=== PATIENT | male | born 1955 | race Caucasian/White ===

== ENCOUNTER → 2019-01-30 | Outpatient (CLI) | payer OTHER, SELFPAY ==
--- NOTE | 2019-01-30 08:06 | CT_ITS ---
STUDY: CT RIGHT SHOULDER REASON FOR EXAM: Male, 64 years old. Right shoulder osteoarthritis RADIATION DOSAGE (If Supplied By Facility): CTDIvol = ( 40.12 ) mGy, DLP = ( 1007.69 ) mGycm TECHNIQUE: The patient was scanned in a multi detector CT scanner. High resolution transaxial imaging was performed without the administration of intravenous contrast material. Sagittal and coronal images were reconstructed. Individualized dose optimization techniques were used for this CT. COMPARISON: None. FINDINGS: There are no acute fractures or dislocations. There are degenerative changes of the acromioclavicular joint and narrowing of the acromiohumeral distance. Mild degenerative changes of the glenohumeral articulation. No evidence of any calcific tendinitis or bursitis. No loose bodies CT/Extremity Upper without Contra IMPRESSION: No fractures. Degenerative changes of the acromioclavicular joint and the glenohumeral articulation with a high riding right humeral head and subsequent narrowing of the acromiohumeral distance. Rotator cuff pathology suspected Electronically Signed: Endy Morgan MD at 0:24 EDT Tel , Service support ,
== END | disposition home or self-care (01) ==
LOC: CT 08:03
PROVIDERS: Family Provider Family Medicine; PCP Family Medicine; Referring Provider Specialist; Visit Provider Specialist
DX: M19.211 Secondary osteoarthritis, right shoulder (principal)
CPT/HCPCS: 73200

== ENCOUNTER 2019-05-16 08:01 | Inpatient (IN) | payer OTHER, MEDICARE, SELFPAY ==
[2019-05-16] VITALS (10 sets, daily range): BP systolic 92–131; BP diastolic 37–111; PULSE 84–116; RESP 16–18; TEMP 36.4–36.9; O2SAT 93–99; BMI 30.2
--- NOTE | 2019-05-16 08:10 | EKG12_ITS ---
Test Reason : PRE OP Blood Pressure : / mmHG Vent. Rate : 081 BPM Atrial Rate : 081 BPM P-R Int : 150 ms QRS Dur : 100 ms QT Int : 388 ms P-R-T Axes : 042 039 040 degrees QTc Int : 450 ms Normal sinus rhythm Normal ECG When compared with ECG of 13-JUL-2017 14:29, No significant change was found Confirmed by FATOUMATA VINCENT ([id number]), web content editor MARVIN NORRIS ([id number]) on 05/22/2019 1:13:39 PM Referred By: Antonio Newberry Confirmed By:FATOUMATA VINCENT
[2019-05-16] MEDS: Acetaminophen 500 MG Tablet 1000 MG PO ×2 (08:58→22:37)
[2019-05-16] MEDS: Celecoxib 200 MG Capsule 400 MG PO (08:59)
[2019-05-16] MEDS: Gabapentin 600 MG Tablet PO (08:59)
[2019-05-16 09:00] LABS: Bedside Glucose 107 mg/dL (70-110)
[2019-05-16] MEDS: Magnesium Sulfate 4gm/100mL 4 GM/100 ML IV.SOLN. IV (09:08)
[2019-05-16] MEDS: Pantoprazole Sodium 40 MG Tablet PO (09:35)
[2019-05-16] MEDS: Lactated Ringers 1,000 ML 999 ML IV ×2 (10:05→15:21)
[2019-05-16] MEDS: Lactated Ringers 1,000 ML 75 ML IV (10:05)
--- NOTE | 2019-05-16 10:30 | RAD_ITS ---
STUDY: X-RAY - LEFT HUMERUS REASON FOR EXAM: Male, 64 years old. ORIF of humerus TECHNIQUE: 11 intraoperative fluoroscopic view(s) of the humerus. COMPARISON: None. FINDINGS: Fluoroscopic guidance was provided during open reduction and internal fixation of a left humeral fracture. Correlation with the operative report is recommended. RAD/Humerus min 2 Views IMPRESSION: As above. Electronically Signed: Antonio Donald, at 16:28 EDT Tel , Service support ,
[2019-05-16] MEDS: dexAMETHasone 10 MG/ML Vial IV (10:38)
--- NOTE | 2019-05-16 13:35 | PCM.OPRPT ---
Report of Operation Date of Procedure: 05/16/19 Pre-Operative Diagnosis: Periprosthetic left humerus fracture with loosening of total shoulder implant Post-Operative Diagnosis: Periprosthetic left humerus fracture with loosening of total shoulder implant Surgery/Procedure Performed:: 1. Left humerus shaft open reduction internal fixation. 2. Left revision total shoulder arthroplasty both components Description of Surgical Findings:: Stable we reduced fracture, stable reverse shoulder replacement. locomotive firer: Carlitos Cruz Type of Anesthesia:: General Anesthesiologist: Manohar Rosales Special Medications: 100 mg clindamycin preop and re-dose 2 hours after initial incision, 1 g TXA at incision, 1 g TXA closure, 10 mg Decadron, joint cocktail (5 mg Duramorph, 30 mL of 0.5% Ropivicaine, 1000 units of epinephrine, 30 mg of Toradol) Specimen's removed: 3 separate specimens were sent to micrology Estimated Blood Loss (mL): 400 Fluids Replaced: 1400 mL crystalloid Description of Procedure: Implants: 1. ExacTech 42 mm glenosphere 2. Tornier flex revive 9 mm x 190 mm humeral stem 3. Flex revive 0 reverse tray 4. Flex revive 42 mm +6 mm polyethylene liner 64-year-old male who had a left reverse total shoulder replacement 3 years ago fell presenting with a comminuted periprosthetic proximal humerus and humeral shaft fracture with humeral stem loosening. Risks and benefits of revision replacement were discussed the patient including but not limited to blood loss, DVTs, PEs, neurovascular damage, infection, general risk of anesthesia including loss of life. We also discussed that the glenoid baseplate was well fixed however based on the fracture pattern I felt that a device from another manufacture would be more appropriate for the revision and stem fixation. Patient demonstrated an understanding of the off label use of these implants and wished to proceed without removal of the glenoid baseplate/well fixed implants. On the date of the procedure patient's left upper extremity was marked in the preoperative area. Patient was brought back to the operating room with her transfer the table in the supine position. Anesthesia assumed control of the C-spine and airway and remained controlled throughout the remainder the procedure. After anesthesia administered anesthetic all bony prominences identified well-padded the head was secured to the table and the patient was placed in the beachchair position at about 30 degrees inclination. Live x-ray was used to verify the fracture position prior to final positioning. After final positioning the left upper extremity was prepped in a sterile fashion with the surgeon scrubbed. Upon reentering the room the left upper extremity was draped in a standard orthopedic fashion. The previous incision was marked out extending it distally in order to address the humeral shaft fracture. Timeout was called and everyone agreed upon the side, the site, the procedure to be performed, patient's identity and antibiotics given. Incision was taken down through skin subtenons tissue and fat down to fascia. The incision was extended distally to the anterior approach to the arm. Due to the extent of the humeral shaft fracture this longer incision was needed as opposed to just revising the stem. Distally we incised the fascia and retracted the biceps medially. Proximally we developed the previously scarred down deltopectoral interval. After carefully developing this interval we were careful to maintain the deltoid insertion as well as the distal half of the pec insertion. A retractor was placed underneath the deltoid and the arm was externally rotated. The previous subscapularis tendon repair was taken back down and the joint was exposed. At this time we were able to dislocate the joint. The joint was dislocated. Cultures from the synovium were sent. After dislocating the joint it was evident that the stem was grossly loose. This was removed using a vice cone treater. Once the stem was removed we then directed our attention distally. Distally we carefully identified the fracture and dissected out. We are careful and mindful of the proximity of the radial nerve. We split the proximal one quarter of the brachialis at the neuro interval. There were multiple fragments of the fracture proximally were able to subperiosteally dissected around the proximal humeral fracture fragment in place a cable bringing the proximal humeral fracture fragments together. Once this was done we then directed our attention more towards the distal portion of the fracture. In this area it was felt that to would give better rotational control. We carefully dissected subperiosteally around the bone in order to prevent nerve damage. We are mindful of the position of the cables. After careful dissection and spending significant time making sure we were subperiosteally it did not feel that any soft tissue that could be the radial nerve was left between the bone and the cable. At this time we were able to provisionally fix these cables down helping to reduce the fracture and make the canal for the humeral stem. Attention was then directed towards revising the reverse total shoulder. After this were able to externally rotate the humerus gave us adequate exposure. We sounded the distal humerus with a 9 mm stem. Based on the of the sound this fit nicely at 190 mm depth. After sounding the trial was constructed and put into place. After placing the trial we provisionally tightened the cables even further and noted that the implant was well fixed. With the previous [address] we trialed the shoulder was reduced showed adequate internal rotation good external rotation. Good forward elevation and good stability. At this time the trial components were removed. The stem was removed from the humerus. Glenosphere machine screw was removed and glenosphere was removed. Membrane from behind glenosphere was sent for culture. After this we copiously irrigated out the wound with 6 L of normal saline under low-pressure lavage. We then used a chlorhexidine solution to lavage the wound and then washed this out with normal saline. On the back table the stem was constructed. The new glenosphere was opened and a 42 mm glenosphere was impacted back into place and the machine screw was used to tighten it down. Once this was done extremity was externally rotated and the stem was impacted into place. Once this was done we again trialed and verified that the shoulder could be adequately reduced and function well. Once this was done the trial components removed the final polyethylene was impacted into place in the humeral baseplate was impacted into place. Shoulder was reduced. Chlorhexidine solution was used to lavage the joint for 1 minute. Copious amounts of normal saline were used to irrigate out the joint. The cables received final tightening and the clamps were tightened down. Cables were cut. There was no anterior structures of the shoulder to repair. At this time the fascia was repaired using #1 Vicryl both proximally and distally. Deep skin closure was done with #1 Vicryl. Superficial skin closure was done with 0 Vicryl and Monocryl. Final skin closure was done with Steri-Strips. A sterile dressing was placed. Patient was placed in a sling with abduction pillow. Patient was then placed in the supine position and awakened by anesthesia and transferred to the PACU for recovery. Postoperative plan: Patient will be on doxycycline for 1 week as we follow cultures from revision. Aspirin daily for DVT prophylaxis. Patient is nonweightbearing for a total of 6 weeks minimum with weightbearing being directed by healing on radiographs. Patient will start physical therapy with gentle passive range of motion and pendulum swing exercises at 2 weeks postop. If adequate healing we will progress to active range of motion at 6 weeks postop. During the course of the procedure the physician assistant professor of dietetics played a vital role. His intimate knowledge of my steps in the procedure aided in safe and expedient completion of the procedure. The PA played a vital rolls in positioning particularly in obtaining the appropriate beach chair position and securing the patient's body and head to the table. The PA was also vital in the retraction of soft tissues during the exposure and especially the glenoid work as this is a vital part of the procedure to prevent neurovascular damage. the PA was also vital and protecting soft tissues during times of bony cuts and reaming. He also played a vital role in closure with my direct supervision. The PA was also important during reduction and dislocation of the joint and trials intraoperatively. Grafts/Implants Used: Tornier humeral stem, ExacTech glenosphere - Complications No intraoperative complications were noted - Admit VTE Documentation VTE Present on Admission: No VTE Mechan Device Prophylaxis: SCD's, Knee High JANAE Hose VTE Pharm Prophylaxis ordered?: Yes
--- NOTE | 2019-05-16 13:38 | RAD_ITS ---
STUDY: X-RAY - LEFT SHOULDER REASON FOR EXAM: Male, 64 years old. Left shoulder arthroplasty TECHNIQUE: 2 view(s) of the shoulder. COMPARISON: None. FINDINGS: There are post surgical changes from left shoulder arthroplasty and placement of a left humeral intramedullary lorna. The hardware is intact and alignment is satisfactory. There are cerclage wires noted spanning a left humeral fracture. There is subcutaneous air noted, consistent with the patient's postoperative state. RAD/Shoulder min 2 Views IMPRESSION: Satisfactory postoperative changes with intact hardware in satisfactory alignment. Electronically Signed: Antonio Donald, at 16:30 EDT Tel , Service support ,
--- NOTE | 2019-05-16 14:03 | RAD_ITS ---
STUDY: X-RAY - LEFT HUMERUS REASON FOR EXAM: Male, 64 years old. Post TECHNIQUE: 2 view(s) of the humerus. COMPARISON: None. FINDINGS: There are post surgical changes from left shoulder arthroplasty and placement of a left humeral intramedullary lorna. The hardware is intact and alignment is satisfactory. There are cerclage wires noted spanning a left humeral fracture. There is subcutaneous air noted, consistent with the patient's postoperative state. RAD/Humerus min 2 Views IMPRESSION: Satisfactory postoperative changes with intact hardware in satisfactory alignment. Electronically Signed: Antonio Donald, at 16:30 EDT Tel , Service support ,
--- NOTE | 2019-05-16 16:35 | CASEMGMT ---
RN KAREN EDI ARCHITECT CM to room to meet with patient for initial transition planning/care coordination assessment. DAPHNE JONES introduced self and role at [facility]. Pt voices understanding and consents to assessment at this time. Pt resting in bed in no distress at this time. @ bedside. Pt is A/O at this time and answers all questions appropriately. Care providers, pharmacy, and demographics verified/updated at this time. PCP: Dr Joshua Gerardo Specialists: Rohith--ortho Preferred Pharmacy: [facility] Insurance: [employer] Prescription Benefit: Yes Living Will/HPOA: has both LW and HCPOA, who is his , Talisha. LNOK: . 2 adult children: Daughter lives close. Son lives in [place] Living Arrangements: Lives in one-story home w/one step to enter thru the garage. States since fracture his has been assisting w/showering and dressing as well as other household tasks. Prior to fx, pt was independent with everything. States he still works on [employer] very part-time Transportation: will drive pt home @ D/C. They states no transportation concerns. DME: has the following DME: shower chair, hand held shower. Pt states no need for further DME at this time. HHC/SNF: No history of either and denies needs. No needs identified. Pt has been getting OP therapy @ [facility] in [place] and wishes to resume OP therapy with them @ discharge. Pt wishes to return home and states has no concerns with going home at time of discharge. CM to follow for any discharge planning/needs. Pt and voice no further concerns/needs at this time. Advised them to ask for CM if any further questions/concerns/needs arise. They voice understanding. PLAN: Home w/resumption of OP therapy @ [facility] therapy and spousal support. Diane CHO RN, CM
[2019-05-16] MEDS: Lactated Ringers 1,000 ML 125 ML IV (17:03)
[2019-05-16] MEDS: Ensure Surgery 237 ML LIQUID PO (17:03)
[2019-05-16 18:05] LABS: EST Glomerular Filtration Rate 71 mL/min (>60); Est Glom Filt Rate - Afr Amer 86 mL/min (>60); Estimated Creatinine Clearance 74.65 ml/min
[2019-05-16] MEDS: Doxepin Hcl 25 MG Capsule PO (22:37)
[2019-05-16] MEDS: Doxycycline 100 MG CAPSULE PO (22:42)
[2019-05-17] MEDS: Lactated Ringers 1,000 ML 15 ML IV (01:26)
[2019-05-17] MEDS: 0.9% NaCl Peripheral Flush Adult/Peds IV ×3 (01:41→06:51)
[2019-05-17] MEDS: Ketorolac 15 MG/ML Vial IV (01:41)
[2019-05-17 03:00] VITALS: BP 111/75; PULSE 109; RESP 18; TEMP 37; O2SAT 94
[2019-05-17] MEDS: oxyCODONE 5 MG Tablet PO (03:26)
[2019-05-17 05:31] LABS: Hematocrit 35.3 % (40-54); Hemoglobin 11.9 g/dL (13.0-16.5); Mean Corp Hgb Conc 33.7 g/dL (32-36); Mean Corpuscular Hgb 30.8 pg (27.0-32.0); Mean Corpuscular Volume 91.5 fL (80-94); Mean Platelet Vol. 9.2 fl (6.2-12.0); Platelet Count 259 K/mm3 (150-450); RBC Distribution Width CV 12.8 % (11.6-14.6); RBC Distribution Width SD 42.5 fl (35.1-43.9); Red Blood Count 3.86 M/mm3 (4.6-6.2); White Blood Count 20.1 K/mm3 (4.4-11.0)
[2019-05-17 05:56] LABS: Anion Gap 7 (5-15); BUN 23 mg/dL (7-18); BUN/Creat Ratio 20.4 RATIO (10-20); Chloride 109 mmol/L (98-107); Creatinine, Serum 1.13 mg/dL (0.70-1.30); EST Glomerular Filtration Rate 69 mL/min (>60); Est Glom Filt Rate - Afr Amer 83 mL/min (>60); Estimated Creatinine Clearance 72.67 ml/min; Glucose 132 mg/dL (74-106); Potassium 4.5 mmol/L (3.5-5.1); Sodium Level 141 mmol/L (136-145)
--- NOTE | 2019-05-17 08:56 | PN.ORTHO_ITS ---
Subjective: The patient was sitting in bed upon examination. Patient denies any chest pain, shortness of breath, dizziness, lightheadedness, nausea or vomiting, or calf pain. Pain is controlled on medications. No adverse overnight events. Patient states the oxycodone is not providing him with pain control. He states he gets better pain control from the meloxicam and Tylenol. He has been in his UltraSling. Patient states the pain is been well controlled. He is sore in the left arm/shoulder. He is adamant that he goes home today. Patient has oxyc odone at home as well as aspirin and the Tylenol. Objective: Tachycardia with heart rate 109, other vital signs stable, afebrile. Patient currently denies any chest pain, shortness of breath or racing heart. He had very similar reaction postoperatively from his previous left reverse total shoulder arthroplasty in July 2017 with elevated heart rate. Dressing is clean, dry, intact Ultra-sling fitting appropriately Sensation intact to axillary, radial, median, and ulnar distribution Motor intact to AIN, PIN, and ulnar nerve. Patient can make okay sign, cross hi s fingers, thumbs up, and active extension of the wrist. - Physical Exam General: Alert, Oriented x3, Cooperative, No apparent distress Vital Signs Temp Pulse Resp BP Pulse Ox 98.6 F 109 H 18 111/75 94 05/17/19 03:00 05/17/19 03:00 05/17/19 03:00 05/17/19 03:00 05/17/19 03:00 Oxygen Flow Rate (L/min) 6 Oxygen Delivery Method Room Air Weight: 104.1 kg Body Mass Index (BMI) 30.2 Intake and Output for Last 24 Hours 05/15/19 05/16/19 05/17/19 23:59 23:59 23:59 Intake Total 4716 / 5016 2438 / 2438 Balance 4716 / 5016 2438 / 2438 Laboratory Tests Past 24 Hrs 05/16/19 05/17/19 05/17/19 16:50 05:20 05:20 WBC 20.1 H RBC 3.86 L Hgb 11.9 L Hct 35.3 L MCV 91.5 MCH 30.8 MCHC 33.7 RDW Std Deviation 42.5 RDW Coeff of Jaxon 12.8 Plt Count 259 MPV 9.2 Sodium 141 Potassium 4.5 Chloride 109 H Carbon Dioxide 25.0 Anion Gap 7 BUN 23 H Creatinine 1.10 1.13 Estim Creat Clear Calc 74.65 72.67 Est GFR (MDRD) Af Amer 86 83 Est GFR (MDRD) Non-Af 71 69 BUN/Creatinine Ratio 20.4 H Glucose 132 H Calcium 8.0 L POC Glucose 05/16/19 08:46 POC Glucose 107 Medical Necessity - Tobacco Use Smoking Status: Never smoker Tobacco Use: Non-smoker Assessment/Plan All Active Problems Intra-articular fracture of distal end of radius with volar angulation (Acute) 1. S/P left humerus shaft open reduction internal fixation with revision total shoulder arthroplasty both components POD #1 2. Continue Pain Medications: Tylenol, meloxicam, and OxyIR 3. DVT Prophylaxis: Aspirin 81 mg daily 4. PT/OT: Patient will be nonweightbearing for 6 weeks minimum with weightbearing being directed by healing on radiographs. Will begin outpatient formal physical therapy 2 weeks postoperatively with gentle passive range of motion and pendulum exercises only. We will hold any active range of motion until 6 weeks postoperatively. While in the hospital okay to work on elbow range of motion only. 5. H & H: 11.9/35.3, asymptomatic 6. Reactive leukocytosis: Currently 20.1, afebrile. Patient did receive Decadron intraoperatively 7. Encouraged Incentive Spirometry 8. Continue with antibiotics while following cultures: Currently pending. Patient will be on doxycycline for 1 week postoperatively 9. Disposition: Orthopedically stable, patient wishes to go home today. I feel it is okay for patient to go. He did have elevated heart rate but he had very similar incident with his previous left reverse total shoulder arthroplasty. He has without any chest pain, shortness of breath, or feeling of racing heart or skipping beats. Patient has oxycodone, Tylenol, aspirin at home. Prescription for senna, doxycycline and meloxicam will be given. He will follow-up per postop instructions.
--- NOTE | 2019-05-17 09:15 | PCM.DC.ORTHO ---
Discharge Diet: No Restrictions Discharge Activity: May Not Drive May shower in (days): 1 - Turn dressing away from water Ice area for (Minutes): 20 - Every 1-2 hours while awake Weight Bearing Status: No weight bearing - Left upper extremity for 6 weeks postoperatively Call your doctor if your incision/area has: Continuous Slow Oozing, Sudden Increased Bleeding, Increased Pain/ Swelling, Increased Redness, Foul Smelling Discharge Call your doctor if you observe: Fever of 101 or Higher, Coldness, Increased Pain, Numbness or Tingling, Change in Color Remove Dressing in (days):: 4 - Okay to remove dressing on May 21, 2019 Additional Instructions: Follow orthopedic postop instructions Okay to work on elbow range of motion only while at home coming out 3 times daily from the UltraSling. Otherwise no active range of motion of the left shoulder. We will begin outpatient physical therapy after 2-week postop follow-up Allergies/Adverse Reactions: Allergies Sulfa (Sulfonamide Antibiotics) Allergy (Verified 05/16/19 08:39) DRIVES ME CRAZY DRIVES ME CRAZY acetaminophen [From Vicodin] Adverse Reaction (Verified 05/14/19 15:13) hallucinations hydrocodone [From Vicodin] Adverse Reaction (Verified 05/14/19 15:13) hallucinations oxycodone Adverse Reaction (Verified 05/14/19 15:13) hallucinations scopolamine [From Transderm-Scop] Adverse Reaction (Verified 05/16/19 15:15) Nausea/Vom/Diarrhea ANTIHISTAMINES Adverse Reaction (Uncoded 05/16/19 08:39) INSOMNIA INSOMNIA Medications to take at Discharge Citalopram [Celexa] 20 mg PO DAILY 05/14/15 Dutasteride [Avodart] 0.5 mg PO DAILY 05/14/15 Doxepin HCl [Sinequan] 25 mg PO QHS 08/26/15 Ascorbic Acid [Vitamin C] 500 mg PO DAILY 07/13/17 Vitamin B Complex 1 each PO DAILY 07/13/17 Vitamin E 400 units PO DAILY 07/13/17 Zinc 50 mg PO DAILY 07/13/17 Lisinopril 20 mg PO DAILY 05/16/19 Omeprazole Magnesium [Prilosec Otc] 20 mg PO DAILY 05/16/19 Acetaminophen [Tylenol] 1,000 mg PO Q8 14 Days tab 10/03/19 Aspirin E.C. [Ecotrin] 81 mg PO DAILY@0800 14 Days tab 05/17/19 Doxycycline 100 mg PO BID #14 cap 05/17/19 Meloxicam [Mobic] 7.5 mg PO BID #60 tab 05/17/19 Oxycodone [Oxyir] 5 - 10 mg PO Q4H PRN PRN 7 Days tab 05/17/19 Senna/Docusate Sodium [Senokot-S] 2 tab PO BID PRN PRN #10 tab 05/17/19 The following prescriptions were given: Doxycycline 100 mg PO BID #14 cap Transmission Status: Pending to [facility] Meloxicam [Mobic] 7.5 mg PO BID #60 tab Transmission Status: Pending to [facility] Senna/Docusate Sodium [Senokot-S] 2 tab PO BID PRN PRN #10 tab PRN Reason: Constipation Transmission Status: Pending to [facility] Primary Care Physician: Joshua Gerardo [Primary Care Provider] - Test Results: Test results from this visit will be discussed in further detail at your follow-up appointment, if applicable. Please Follow Up With: Carlitos Cruz PA-C When: 05/30/19 @ 9:15 am
[2019-05-17] MEDS: Citalopram 20 MG Tablet PO (09:21)
[2019-05-17] MEDS: Ascorbic Acid 500 MG Tablet PO (09:21)
[2019-05-17] MEDS: Ensure Surgery 237 ML LIQUID PO (09:21)
[2019-05-17] MEDS: Famotidine 20 MG Tablet PO (09:21)
[2019-05-17] MEDS: Meloxicam 7.5 MG Tablet PO (09:21)
[2019-05-17] MEDS: Aspirin E.C. 81 MG Tablet PO (09:21)
[2019-05-17] MEDS: Pantoprazole Sodium 20 MG Tablet PO (09:22)
[2019-05-17] MEDS: Finasteride 5 MG Tablet PO (09:22)
[2019-05-17] MEDS: Doxycycline 100 MG CAPSULE PO (09:22)
[2019-05-17 10:38] VITALS: BP 116/73; PULSE 99; RESP 18; TEMP 36.7; O2SAT 95
== END 2019-05-17 11:00 | disposition home or self-care (01) | DRG 483 ==
LOC: ACINP 08:38 → MS3 05-17 13:19
PROVIDERS: Admitting Provider Specialist; Family Provider Family Medicine; PCP Family Medicine; Referring Provider Specialist; Visit Provider Specialist
PROC: 0RRK00Z Replacement of Left Shoulder Joint with Reverse Ball and Socket Synthetic Substitute, Open Approach (ICD-10-PCS; principal; 2019-05-16 10:10)
DX: S42.252A Displaced fracture of greater tuberosity of left humerus, initial encounter for closed fracture (principal); S42.352A Displaced comminuted fracture of shaft of humerus, left arm, initial encounter for closed fracture; M97.32XA Periprosthetic fracture around internal prosthetic left shoulder joint, initial encounter; Z96.612 Presence of left artificial shoulder joint; W07.XXXA Fall from chair, initial encounter; I10 Essential (primary) hypertension; E66.3 Overweight; Z68.32 Body mass index [BMI] 32.0-32.9, adult; Z87.891 Personal history of nicotine dependence
CPT/HCPCS: 36415; 73030; 73060; 76000; 80048; 82565; 82962; 85027; 87015; 87070; 87075; 87081; 87102; 87116; 87176; 87205; 87206; 93005; 97161; 97166; 99251; C1776; J7040; J7120; A4216; G0463; J2405

== ENCOUNTER 2019-06-06 09:26 | Inpatient (IN) | payer OTHER, MEDICARE, SELFPAY ==
[2019-05-16 16:49] VITALS: BMI 30.2
[2019-06-06] VITALS (10 sets, daily range): BP systolic 87–122; BP diastolic 68–80; PULSE 78–94; RESP 16; TEMP 35.8–36.6; O2SAT 95–99; BMI 31.1
--- NOTE | 2019-06-06 | FORE_PTH ---
PATIENT: BANG CARRILLO LOC: [facility] U#:[id number] AGE/SX: 64/M ROOM: DE325 RE06/06/[address]: Dr. Antonio Newberry MD : [id number] BED: 1 DIS: 06/07/2019 SPEC #: [id number] RECD: 06/06/19 12:00 STATUS: JACQUI REStephon #: [id number] VICK: 06/06/19 00:[address]: Antonio Newberry DEPT: SURGICAL PATHOLOGY RECD BY: Joelle Riggins ENTERED: 06/07/19 08:57 SP TYPE: FOREIGN B TRACY DR: Dr. Joshua Gerardo MD Tissues: FOREIGN BODY Procedures: Surgery Specimen Level I HEADER OPERATION: ERAS, total shoulder reverse revision PRE-OP DIAGNOSIS: Presence left artificial shoulder joint TISSUE SUBMITTED: Prosthetic left shoulder joint GROSS DIAGNOSIS Pieces of orthopedic hardware, clinically prosthetic left shoulder joint. SJ:queenie 06/08/19 COMMENT Orthopedic hardware pieces are returned to the company after approval by the legal services. Photographs of the hardware are taken. GROSS DESCRIPTION Received is one container labeled with the patient's name and not further designated. The specimen consists of six pieces of orthopedic hardware, consistent with shoulder joint replacement hardware. The metallic ball portion of humeral head hardware measures 3.7 x 3.7 x 0.7 cm. Plastic portion cemented to metallic ball measures 3.7 cm in diameter. Two metallic pieces consisting of humeral stem measure 4.5 x 2 x 1.5 cm and 13 cm in length and 1 cm in diameter. A metallic screw is present which measures 6 cm in diameter and 0.5 cm in length. One metallic hollow sleeve is present which measures 2 cm in length and 0.7 cm in diameter and is inscribed with number [id number]. A round metallic nut is also present measuring 0.7 cm in diameter and 0.5 cm in length. The specimen is for gross identification only. / Scooby 06/06/19 CPT: 12378
[2019-06-06] MEDS: Lactated Ringers 1,000 ML 999 ML IV ×2 (10:08→14:50)
[2019-06-06] MEDS: Magnesium Sulfate 4gm/100mL 4 GM/100 ML IV.SOLN. IV (10:15)
[2019-06-06 10:16] LABS: Bedside Glucose 137 mg/dL (70-110)
[2019-06-06] MEDS: Acetaminophen 500 MG Tablet 1000 MG PO ×2 (10:40→21:07)
[2019-06-06] MEDS: Gabapentin 600 MG Tablet PO (10:41)
[2019-06-06] MEDS: Lactated Ringers 1,000 ML 75 ML IV (11:10)
[2019-06-06] MEDS: Cefazolin 2 GM in 0.9% Normal Saline 100 ML IV (12:22)
--- NOTE | 2019-06-06 12:32 | RAD_ITS ---
STUDY: X-RAY - LEFT SHOULDER REASON FOR EXAM: Male, 64 years old. ReVision of left shoulder replacement. TECHNIQUE: 2 view(s) of the shoulder. COMPARISON: None. FINDINGS: Fluoroscopic services were provided for shoulder replacement. There is good alignment. RAD/Shoulder min 2 Views IMPRESSION: Intraoperative imaging provided for shoulder replacement. Electronically Signed: Delonte Pace, at 14:47 EDT , Service support ,
--- NOTE | 2019-06-06 14:05 | RAD_ITS ---
STUDY: X-RAY - LEFT HUMERUS REASON FOR EXAM: Male, 64 years old. . Postop TECHNIQUE: 2 view(s) of the humerus. COMPARISON: May 16, 2019 FINDINGS: There are healing fractures of the left humeral shaft status post open reduction internal fixation. Left shoulder prosthesis is also demonstrated in anatomic alignment and position... . RAD/Humerus min 2 Views IMPRESSION: Status post open reduction internal fixation of left humeral shaft fracture. Stable appearance to shoulder prosthesis. Electronically Signed: Kendrick Solorzano MD at 16:16 EDT , Service support ,
--- NOTE | 2019-06-06 14:06 | RAD_ITS ---
STUDY: X-RAY - LEFT SHOULDER REASON FOR EXAM: Male, 64 years old. Postop TECHNIQUE: 2 view(s) of the shoulder. COMPARISON: June 06, 2019. FINDINGS: Healing fracture of left humeral shaft status post open reduction internal fixation. Status post shoulder prosthesis placement RAD/Shoulder min 2 Views IMPRESSION: Status post left shoulder prosthesis placement Electronically Signed: Kendrick Solorzano MD at 16:16 EDT , Service support ,
--- NOTE | 2019-06-06 14:09 | PCM.OPRPT ---
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 Fracture remained well reduced and well fixed during the procedure [employer] consultant: Carlitos Cruz Type of Anesthesia:: General Anesthesiologist: Marcelino Cervantes Special Medications: 2 g Ancef, 1 g TXA at incision, 1 g TXA closure, 10 mg Decadron, joint cocktail (5 mg Duramorph, 30 mL of 0.5% Ropivicaine, 1000 units of epinephrine, 30 mg of Toradol), IV vancomycin Estimated Blood Loss (mL): 300 mL Fluids Replaced: 1000 ML crystalloid Description of Procedure: Implants Tornier Aequalis Flex revive system 1. Proximal body 11 mm with 132.5 degree angle, standard 2. Distal stem 11 mm x 130 mm 3. Interbody spacer 11 mm x 20 mm 4. 0 reverse humeral tray 5. +6 mm 42 mm angle C reverse insert 64-year-old male who had a periprosthetic humerus fracture with open reduction internal fixation and revision of the total shoulder replacement 3 weeks ago. 1 week postop patient felt something catching in his arm. 2 weeks postop patient was noted to have distraction of the modular implant. At this time we discussed risks and benefits of revising the modular implant. Patient demonstrate understanding was able to sign informed consent. He did understand the risks include but were not limited blood loss, DVTs, PEs, neurovascular damage, infection, the risk of anesthesia, repeat hardware failure. I did explain to the patient that unfortunately this is the only modular implant in for the periprosthetic fracture most likely the best potential treatment plan. After multiple discussions with the implant company and engineers we elected to proceed with revision of the implant. On the date of the procedure patient's left shoulder was marked in the preoperative area. Patient was brought back to the operating room where they were transferred to the table in the supine position. Anesthesia assumed control of the C-spine and airway and remained controlled throughout the remainder the procedure. Patient's head was securely fastened to the table the patient was placed in the beachchair position. All bony prominences identified well-padded. Left upper extremities and prepped in a sterile fashion while the surgeon scrubbed. Upon reentering the room the left upper extremity was draped in a standard orthopedic fashion previous incision was marked out and timeout was called. When agreed upon the side, the site, the procedure to be performed, patient's identity antibiotic given. Try to make an incision we used live fluoroscopy to determine if the screw was still engaged into the distal portion of the implant. The distal fragment was no longer engaged with the screw. At this time we proceeded with the surgery. Incision was taken down through skin using the top half of the previous incision part needed for the total shoulder replacement. Once we are through skin we carefully dissected through the deltopectoral interval using the previous suture from that layer of closure. Once were able to do this we are able to slide a retractor up over the humerus and under the deltoid protecting the axillary nerve. Synovium was debrided and at this time the shoulder could be dislocated. The glenosphere appeared appropriate we elected not to do anything with the glenosphere. At this time the humeral body could be easily removed. A distracting screw was placed through the intermediate body and into the distal fragment of the modular stem. Backstop was used to remove this and it was able to be removed. It seemed to be fairly well fixed. At this time we re-sounded the canal we re-sounded up one size from a 9 to an11. This gave us a very snug fit. The wound was then copiously irrigated out normal saline with 6 L under low-pressure lavage. The proximal humerus was then again exposed and a trial was placed. Once we are happy with the fit of the trial we then assembled the final component. In assembling the final component we made very careful assurance that the teeth were adequately engaged. The screw was tightened down to white knuckle tightness. The secondary screw was then tightened down to white knuckle tightness. During each time we made multiple attempts at final tightening to verify adequate tightness. With this was completed there was no plate in the system appeared to be adequately tight. At this time we are able to examine the arm with no intramedullary implant. The fracture appeared to be healing well and moved as unit. The final stem was then impacted into place. Once it was an adequate depth we then trialed. The trial liner and humeral baseplate were then removed. The baseplate was open, the Henderson taper was cleaned and the baseplate was impacted into place. Finally the 42 mm +6 mm angle C, 7.5 degrees was trialed and found to be appropriate. There was appropriate soft tissue tensioning of the conjoined tendon. Adequate range of motion and stability were obtained. Shoulder was then dislocated. Trial poly-was removed wound was irrigated and final poly-was impacted into place. Shoulder was reduced. Final x-rays were taken verifying adequate fracture reduction in depth of the stem. Once was completed chlorhexidine solution was used to irrigate out the wound. The wound was then irrigated out with normal saline with copious amounts. Wound was closed in layer christensen fashion using #1 Vicryl for the fascia. 2-0 Vicryl for the skin and final skin closure was done with a Monocryl runner. Patient was placed in a sling and then awakened by anesthesia. They were placed in the supine position and transferred to the rney transferred to PACU for recovery. Postoperative plan: Patient will take aspirin daily for DVT prophylaxis. Doxycycline postoperatively for 1 week. Due to the healing of the fracture we will follow a normal postoperative physical therapy protocol for the shoulder. During the course of the procedure the physician assistant corporation counsel played a vital role. His intimate knowledge of my steps in the procedure aided in safe and expedient completion of the procedure. The PA played a vital rolls in positioning particularly in obtaining the appropriate beach chair position and securing the patient's body and head to the table. The PA was also vital in the retraction of soft tissues during the exposure and especially the glenoid work as this is a vital part of the procedure to prevent neurovascular damage. the PA was also vital and protecting soft tissues during times of bony cuts and reaming. He also played a vital role in closure with my direct supervision. The PA was also important during reduction and dislocation of the joint and trials intraoperatively. Grafts/Implants Used: Tornier - Complications No intraoperative complications - Admit VTE Documentation VTE Present on Admission: No VTE Mechan Device Prophylaxis: SCD's, Knee High JANAE Hose VTE Pharm Prophylaxis ordered?: Yes
[2019-06-06] MEDS: Lactated Ringers 1,000 ML 125 ML IV ×2 (15:48→19:55)
[2019-06-06] MEDS: Ensure Surgery 237 ML LIQUID PO (18:02)
[2019-06-06] MEDS: Cefazolin 1 GM/50 ML BAG IV (19:55)
[2019-06-06] MEDS: Ketorolac 15 MG/ML Vial IV (21:06)
[2019-06-06] MEDS: Doxycycline 100 MG CAPSULE PO (21:07)
[2019-06-06] MEDS: Senna/Docusate Sodium 1 Tablet 2 TABLET PO (21:07)
[2019-06-06] MEDS: Doxepin Hcl 25 MG Capsule PO (21:07)
[2019-06-07] MEDS: traMADol 50 MG Tablet PO (01:02)
[2019-06-07 01:05] VITALS: BP 138/90; PULSE 91; RESP 18; TEMP 36.4; O2SAT 97
[2019-06-07] MEDS: Cefazolin 1 GM/50 ML BAG IV (04:52)
[2019-06-07 04:55] VITALS: BP 135/95; PULSE 91; RESP 18; TEMP 36.6; O2SAT 97
[2019-06-07] MEDS: Acetaminophen 500 MG Tablet 1000 MG PO (05:08)
[2019-06-07 07:25] LABS: Anion Gap 6 (5-15); BUN 16 mg/dL (7-18); BUN/Creat Ratio 18.1 RATIO (10-20); Calcium,Total 8.3 mg/dL (8.5-10.1); Chloride 109 mmol/L (98-107); Creatinine, Serum 0.88 mg/dL (0.70-1.30); EST Glomerular Filtration Rate 91 mL/min (>60); Est Glom Filt Rate - Afr Amer 111 mL/min (>60); Estimated Creatinine Clearance 90.63 ml/min; Glucose 112 mg/dL (74-106); Potassium 4.4 mmol/L (3.5-5.1); Sodium Level 135 mmol/L (136-145)
[2019-06-07 07:34] VITALS: BP 152/94; PULSE 93; RESP 16; TEMP 36.8; O2SAT 96
[2019-06-07 07:36] LABS: Hematocrit 47.3 % (40-54); Hemoglobin 15.9 g/dL (13.0-16.5); Mean Corp Hgb Conc 33.6 g/dL (32-36); Mean Corpuscular Hgb 31.2 pg (27.0-32.0); Mean Corpuscular Volume 92.7 fL (80-94); Platelet Count 154 K/mm3 (150-450); RBC Distribution Width CV 12.9 % (11.6-14.6); White Blood Count 6.7 K/mm3 (4.4-11.0)
[2019-06-07 07:38] LABS: M R Staph aureus DNA By PCR Negative (Negative); Probe Check PASS; Specimen Processing Control PASS
--- NOTE | 2019-06-07 07:53 | PN.ORTHO_ITS ---
Subjective: The patient was sitting in bed upon examination. Patient denies any chest pain, shortness of breath, dizziness, lightheadedness, nausea or vomiting, or calf pain. Pain is controlled on medications. No adverse overnight events. Overall patient is doing well this morning. He has very little pain. He denies any numbness and tingling. Patient is adamant he wishes to go home today. Objective: Vital signs stable, afebrile Dressing is clean, dry, intact Ultra-sling fitting appropriately Sensation intact to axillary, radial, median, and ulnar distribution Motor intact to AIN, PIN, and ulnar nerve - Physical Exam Vitals/I&O's: Vital Signs Temp Pulse Resp BP Pulse Ox 98.3 F 93 16 152/94 H 96 06/07/19 07:34 06/07/19 07:34 06/07/19 07:34 06/07/19 07:34 06/07/19 07:34 Oxygen Flow Rate (L/min) 6 Oxygen Delivery Method Room Air Weight: 104.1 kg Body Mass Index (BMI) 31.1 Intake and Output for Last 24 Hours 06/05/19 06/06/19 06/07/19 23:59 23:59 23:59 Intake Total 4480.83 / 4930.83 1468.25 / 1468.25 Balance 4480.83 / 4930.83 1468.25 / 1468.25 General: Alert, Oriented x3, Cooperative, No apparent distress Laboratory Results 06/06/19 10:10: POC Glucose 137 H 06/07/19 05:00: MRSA (PCR) Negative 06/07/19 06:50: WBC 6.7, RBC 5.10, Hgb 15.9, Hct 47.3, MCV 92.7, MCH 31.2, MCHC 33.6, RDW Std Deviation 44.0 H, RDW Coeff of Jaxon 12.9, Plt Count 154, MPV 10.0 06/07/19 06:50: Sodium 135 L, Potassium 4.4, Chloride 109 H, Carbon Dioxide 20.0 L, Anion Gap 6, BUN 16, Creatinine 0.88, Estim Creat Clear Calc 90.63, Est GFR (MDRD) Af Amer 111, Est GFR (MDRD) Non-Af 91, BUN/Creatinine Ratio 18.1, Glucose 112 H, Calcium 8.3 L Current Medications Acetaminophen (Tylenol) 1,000 mg PO Q8 [facility] Last Admin: 06/07/19 05:08 Dose: 1,000 mg Documented by: Ascorbic [facility] (Vitamin C) [facility] Aspirin (Aspirin) 325 mg PO DAILY@0800 [facility] Citalopram Hydrobromide (Celexa) 20 mg PO DAILY [facility] Doxepin HCl (Sinequan) 25 mg PO QHS [facility] Last Admin: 06/06/19 21:07 Dose: 25 mg Documented by: Doxycycline Monohydrate (Doxycycline) 100 mg PO BID [facility] Last Admin: 06/06/19 21:07 Dose: 100 mg Documented by: Enteral Nutritional Formula (Ensure Surgery) 237 ml PO TIDCM [facility] Last Admin: 06/06/19 18:02 Dose: 237 ml Documented by: Famotidine (Pepcid) 20 mg PO DAILY [facility] Finasteride (Proscar) 5 mg PO DAILY [facility] Lactated Ringer's () 1,000 mls @ 125 mls/hr IV .Q8H [facility] Last Infusion: 06/07/19 05:12 Dose: 15 mls/hr Documented by: Insulin Human Lispro (Humalog Kwikpen (Bkc)) 1 - 6 unit SC Q4H PRN PRN; Protocol PRN Reason: BG>/= 180, SEE PROTOCOL Ketorolac Tromethamine (Toradol) 15 mg IV Q6H PRN PRN PRN Reason: Pain Score 1-5/10 Stop: 06/08/19 14:07 Last Admin: 06/06/19 21:06 Dose: 15 mg Documented by: Lisinopril (Zestril) 20 mg PO DAILY [facility] Meloxicam (Mobic) 7.5 mg PO BID [facility] Ondansetron HCl (Zofran) 4 mg IV Q8H PRN PRN PRN Reason: NAUSEA Pantoprazole Sodium (Protonix) 20 mg PO DAILY [facility] Promethazine HCl (Phenergan) 12.5 mg IM Q6H PRN PRN; Protocol PRN Reason: NAUSEA/VOMITING Senna/Docusate Sodium (Senokot-S, Jolynn-Colace) 2 tablet PO BID [facility] Last Admin: 06/06/19 21:07 Dose: 2 tablet Documented by: Tramadol HCl (Ultram) 50 - 100 mg PO Q6H PRN PRN PRN Reason: Pain Score 4-10/10 Last Admin: 06/07/19 01:02 Dose: 50 mg Documented by: Medical Necessity - Tobacco Use Smoking Status: Never smoker Assessment/Plan All Active Problems Intra-articular fracture of distal end of radius with volar angulation (Acute) 1. S/P revision left total shoulder humeral stem POD #1 2. Continue Pain Medications: Tylenol and tramadol 3. DVT Prophylaxis: Aspirin 325 mg once daily for 2 weeks postoperatively 4. PT/OT: Okay for range of motion of the left elbow, wrist/hand. We will begin regular 2-week postoperative physical therapy plan beginning phase 1 of the left shoulder at 2 weeks. Continue with UltraSling. 5. H & H: 15.9/47.3, asymptomatic 6. Encouraged Incentive Spirometry 7. Continue with antibiotics as prescribed: Currently on doxycycline 8. Disposition: Orthopedically stable, plan will be for discharge home today. Patient has all prescriptions at home and will not need any on discharge. He will follow-up per postop instructions. Patient will need 2-week physical therapy scheduled.
[2019-06-07] MEDS: Aspirin 325 MG Tablet PO (07:55)
[2019-06-07] MEDS: Ascorbic Acid 500 MG Tablet PO (07:55)
--- NOTE | 2019-06-07 07:59 | DCINST_ITS ---
Discharge Diet: No Restrictions Discharge Activity: May Not Drive May shower in (days): 1 - Dressing must be intact the skin, turn dressing away from water Ice area for (Minutes): 20 - Every 1-2 hours while awake Weight Bearing Status: No weight bearing - Left upper extremity Call your doctor if your incision/area has: Continuous Slow Oozing, Sudden Increased Bleeding, Increased Pain/ Swelling, Increased Redness, Foul Smelling Discharge Call your doctor if you observe: Fever of 101 or Higher, Coldness, Increased Pain, Numbness or Tingling, Change in Color Remove Dressing in (days):: 4 - Okay to remove on June 11, 2019 Allergies/Adverse Reactions: Allergies Sulfa (Sulfonamide Antibiotics) Allergy (Verified 06/06/19 10:26) DRIVES ME CRAZY DRIVES ME CRAZY hydrocodone [From Vicodin] Adverse Reaction (Verified 06/06/19 10:26) hallucinations oxycodone Adverse Reaction (Verified 06/06/19 10:26) hallucinations scopolamine [From Transderm-Scop] Adverse Reaction (Verified 06/06/19 10:26) Nausea/Vom/Diarrhea ANTIHISTAMINES Adverse Reaction (Uncoded 06/06/19 10:26) INSOMNIA INSOMNIA Medications to take at Discharge Citalopram [Celexa] 20 mg PO DAILY 05/14/15 Dutasteride [Avodart] 0.5 mg PO DAILY 05/14/15 Doxepin HCl [Sinequan] 25 mg PO QHS 08/26/15 Ascorbic Acid [Vitamin C] 500 mg PO DAILY 07/13/17 Vitamin B Complex 1 each PO DAILY 07/13/17 Vitamin E 400 units PO DAILY 07/13/17 Zinc 50 mg PO DAILY 07/13/17 Lisinopril 20 mg PO DAILY 05/16/19 Omeprazole Magnesium [Prilosec Otc] 20 mg PO DAILY 05/16/19 Doxycycline 100 mg PO BID 06/05/19 Acetaminophen [Tylenol] 1,000 mg PO Q8 14 Days tab 06/07/19 Aspirin 325 mg PO DAILY@0800 14 Days tab 06/07/19 Meloxicam [Mobic] 7.5 mg PO BID tab 06/07/19 Senna/Docusate Sodium [Senokot-S] 2 tab PO BID tab 06/07/19 traMADol [Ultram] 50 - 100 mg PO Q6H PRN PRN tab 06/07/19 Primary Care Physician: Joshua Gerardo [Primary Care Provider] - Test Results: Test results from this visit will be discussed in further detail at your follow- up appointment, if applicable. Please Follow Up With: Carlitos Cruz PA-C When: 06/20/19 @ 10:30 am Please Follow Up With: Physical Therapy When: will need 2 week post-op P.T. visit scheduled.
[2019-06-07] MEDS: Ensure Surgery 237 ML LIQUID PO (09:17)
[2019-06-07] MEDS: Citalopram 20 MG Tablet PO (09:18)
[2019-06-07] MEDS: Doxycycline 100 MG CAPSULE PO (09:18)
[2019-06-07] MEDS: Meloxicam 7.5 MG Tablet PO (09:20)
[2019-06-07] MEDS: Famotidine 20 MG Tablet PO (09:21)
[2019-06-07] MEDS: Finasteride 5 MG Tablet PO (09:22)
[2019-06-07] MEDS: Pantoprazole Sodium 20 MG Tablet PO (09:22)
[2019-06-07] MEDS: Senna/Docusate Sodium 1 Tablet 2 TABLET PO (09:23)
[2019-06-07] MEDS: Lisinopril 20 MG Tablet PO (09:24)
--- NOTE | 2019-06-07 11:44 | CASEMGMT ---
Case Management Re-Admission Note: Patient was admitted 05/16-05/17/19 for Left Humerus Shaft Open Reduction Internal Fixation w/Revision Total Shoulder Arthoplasty Both Components. Re-admitted 06/06/19 for Failed Left Total Shoulder Replacement, Procedure- Revision Left Total Shoulder Humeral Stem. Patient discharged home prior to this real estate underwriter s/w him. Did note that patient was scheduled a f/u on last DC for 05/30/19 at 0915 with LUIS Krueger. This real estate underwriter did note that patient was seen in office per H&P after last DC, Medications patient is taking per H&P did match medications on last DC [facility]. Please refer to last CM assessment for further detail. No additional Care Coordination needs identified at this time. Bianca Rivas RNCM
== END 2019-06-07 10:01 | disposition home or self-care (01) | DRG 483 ==
LOC: ACINP 09:34 → MS3 15:08
PROVIDERS: Admitting Provider Specialist; Family Provider Family Medicine; PCP Family Medicine; Referring Provider Specialist; Visit Provider Specialist
PROC: 0RRK0J6 Replacement of Left Shoulder Joint with Synthetic Substitute, Humeral Surface, Open Approach (ICD-10-PCS; principal; 2019-06-06 11:45)
DX: T84.098A Other mechanical complication of other internal joint prosthesis, initial encounter (principal); Z96.612 Presence of left artificial shoulder joint
CPT/HCPCS: 36415; 73030; 73060; 76000; 80048; 82962; 85027; 87641; 88300; 97166; 99251; C1776; J7040; J7120; G0463; J2405

== ENCOUNTER → 2020-10-02 15:05 | Outpatient (CLI) | payer OTHER, SELFPAY ==
[2019-06-06 16:13] VITALS: BMI 31.1
--- NOTE | 2020-10-02 15:14 | CT_ITS ---
CT of the left lower extremity without contrast INDICATION: Preop knee arthroplasty, December protocol. TECHNIQUE: Multiple thin section axial CT images of the left lower extremity were obtained through the hip, knee, ankle joints and filmed in bone windows. Furthermore, multiple sagittal and coronal reconstructions were performed. Dose limiting techniques were utilized. FINDINGS: Hip: Atrophy of the anterior aspect of the left gluteus medius muscle. No abnormal soft tissue mass, lymphadenopathy, fluid collection. No acute fracture or dislocation. Mild hip arthrosis with some spurring of the lateral roof of the acetabulum Knee: No abnormal soft tissue mass, lymphadenopathy, or fluid collection. No acute fracture or dislocation. Moderate joint effusion. Moderate knee arthrosis.. Ankle: No abnormal soft tissue mass, lymphadenopathy, fluid collection. No acute fracture or dislocation. Normal ankle joint. IMPRESSION: Moderate knee arthrosis with joint effusion. Electronically Signed: Hernesto Cota MD at 11:13 EST Tel , Service support , CT/Extremity Lower without Contra
== END ==
PROVIDERS: PCP Family Medicine; Referring Provider Specialist; Visit Provider Specialist
DX: M21.062 Valgus deformity, not elsewhere classified, left knee (principal)
CPT/HCPCS: 73700

== ENCOUNTER → 2022-10-12 | Outpatient (CLI) | payer OTHER, SELFPAY ==
[2022-10-12 10:08] LABS: Erythrocyte Sedimentation Rate 3 mm/hr (0-20)
[2022-10-12 10:10] LABS: Absolute Lymphocyte Count 1.23 X10^3/uL (0.83-4.51); Absolute Neutrophil Count 5.7 X10^3/uL (2.0-7.7); Basophil# 0.03 X10^3/uL; Basophil% 0.4 % (0-1); Eosinophil# 0.13 X10^3/uL; Eosinophils% 1.7 % (0-5); Hematocrit 40.8 % (40-54); Hemoglobin 13.8 g/dL (13.0-16.5); Lymphocyte # 1.23 X10^3/ul (0.83-4.51); Lymphocyte % 15.9 % (19-41); Mean Corp Hgb Conc 33.8 g/dL (32-36); Mean Corpuscular Hgb 30.5 pg (27.0-32.0); Mean Corpuscular Volume 90.1 fL (80-94); Mean Platelet Vol. 10.2 fl (6.2-12.0); Monocyte# 0.65 X10^3/uL; Monocyte% 8.4 % (0-10); NRBC Flagged by Analyzer 0 % (0-5); Neutrophil # 5.66 X10^3/uL (2.7-7.7); Neutrophil % 73.3 % (47-70); Platelet Count 276 K/mm3 (150-450); RBC Distribution Width CV 12.9 % (11.6-14.6); RBC Distribution Width SD 42.3 fl (35.1-43.9); Red Blood Count 4.53 M/mm3 (4.6-6.2); White Blood Count 7.7 K/mm3 (4.4-11.0)
[2022-10-12 10:52] LABS: ALB/GLOB Ratio 1.1 RATIO (0.9-2.4); AST(SGOT) 17 U/L (15-37); Alanine Aminotransfer ALT/SGPT 29 U/L (16-61); Albumin, Serum 3.6 g/dL (3.2-5.0); Alkaline Phosphatase 66 U/L (45-117); Amylase 52 U/L (25-115); Anion Gap 6 (5-15); BUN 21 mg/dL (7-18); BUN/Creat Ratio 22.4 RATIO (10-20); CRP < 2.90 mg/L (0.0-3.0); Calcium,Total 9.1 mg/dL (8.5-10.1); Chloride 106 mmol/L (98-107); Creatinine, Serum 0.94 mg/dL (0.70-1.30); EST Glomerular Filtration Rate 85 mL/min (>60); Est Glom Filt Rate - Afr Amer 102 mL/min (>60); Globulin 3.3 g/dL (2.2-4.2); Glucose 112 mg/dL (74-106); LDH 140 U/L (87-241); Lipase 131 U/L (73-393); Potassium 3.1 mmol/L (3.5-5.1); Protein, Total 6.9 g/dL (6.4-8.2); Sodium Level 139 mmol/L (136-145)
[2022-10-13 14:09] LABS: Anti-Centromere B Ab <0.2 AI (0.0-0.9); Anti-Chromatin <0.2 AI (0.0-0.9); Anti-Jo <0.2 AI (0.0-0.9); Anti-Scleroderma-70 AB <0.2 AI (0.0-0.9); SJOGREN'S Anti-SS-A test < 0.2 AI (0.0-0.9); SJOGREN'S Anti-SS-B test < 0.2 AI (0.0-0.9); Smith Ab <0.2 AI (0.0-0.9)
[2022-10-13 15:08] LABS: Endomysial Antibody IgA Negative (Negative)
[2022-10-13 18:49] LABS: Immunoglobulin A 125 mg/dL (61-437); t-Transglutaminase IgA <2 U/mL (0-3)
[2022-10-13 18:53] LABS: Anti-dsDNA Ab <1 IU/mL (0-9)
[2022-10-16 05:08] LABS: Albumin 3.7 g/dL (2.9-4.4); Alpha-1-Globulins 0.3 g/dL (0.0-0.4); Alpha-2-Globulins 0.7 g/dL (0.4-1.0); Cytoplasmic Ab (C-ANCA) <1:20 titer (Neg:<1:20); Immunoglobulin A 129 mg/dL (61-437); Immunoglobulin E 53 IU/mL (6-495); Immunoglobulin G 1113 mg/dL (603-1613); Immunoglobulin M 59 mg/dL (20-172); PROEL- TOTAL PROTEIN 6.5 g/dL (6.0-8.5)
[2022-10-16 10:59] LABS: Gastrin, Serum 59 pg/mL (0-115); IMMUNOFIXATION RESULT,S Comment: (.); Perinuclear Ab (P-ANCA) <1:20 titer (Neg:<1:20)
[2022-10-18 19:01] LABS: Pancreatic Elastase, Fecal > 500 (>200)
[2022-10-18 19:06] LABS: Calprotectin, Stool <16 ug/g (0-120); Fats, Neutral Normal (.); Fats, Total Increased (.)
== END | disposition home or self-care (01) ==
PROVIDERS: PCP Family Medicine; Visit Provider Internal Medicine Gastroenterology
DX: K52.9 Noninfective gastroenteritis and colitis, unspecified (principal); R10.9 Unspecified abdominal pain
CPT/HCPCS: 36415; 80053; 82150; 82653; 82705; 82784; 82785; 82941; 83516; 83615; 83630; 83690; 83993; 84165; 85025; 85652; 86140; 86225; 86235; 86255; 86256; 86334; 87177; 87209; 87329; 87493; 87506

== ENCOUNTER → 2022-10-15 | Outpatient (CLI) | payer OTHER, SELFPAY ==
[2022-10-15 18:04] LABS: ALB/GLOB Ratio 1.1 RATIO (0.9-2.4); AST(SGOT) 20 U/L (15-37); Alanine Aminotransfer ALT/SGPT 26 U/L (16-61); Albumin, Serum 3.8 g/dL (3.2-5.0); Alkaline Phosphatase 67 U/L (45-117); Anion Gap 7 (5-15); BUN 21 mg/dL (7-18); BUN/Creat Ratio 24.8 RATIO (10-20); Chloride 105 mmol/L (98-107); Creatinine, Serum 0.85 mg/dL (0.70-1.30); EST Glomerular Filtration Rate 95 mL/min (>60); Est Glom Filt Rate - Afr Amer 115 mL/min (>60); Globulin 3.4 g/dL (2.2-4.2); Glucose 102 mg/dL (74-106); Potassium 4.1 mmol/L (3.5-5.1); Protein, Total 7.2 g/dL (6.4-8.2); Sodium Level 138 mmol/L (136-145)
== END | disposition home or self-care (01) ==
LOC: LAB 16:36
PROVIDERS: PCP Family Medicine; Referring Provider Internal Medicine Gastroenterology; Visit Provider Internal Medicine Gastroenterology
DX: K52.9 Noninfective gastroenteritis and colitis, unspecified (principal); E87.6 Hypokalemia
CPT/HCPCS: 36415; 80053